=== PATIENT | male | born 2000 | race Caucasian/White ===

== ENCOUNTER 2020-09-07 16:31 | Emergency (ER) | payer OTHER ==
[~2020-09-07 16:31] MED LIST: ETODOLAC500 MG PO; MIRALAX17 GM PO; ONDANSETRON ODT4 MG PO; VENTOLIN HFA IN18 GM INH
== END 2020-09-07 18:04 | disposition left against medical advice (07) ==
LOC: FER 16:31
DX: R06.02 Shortness of breath (principal); R53.1 Weakness; R11.0 Nausea; Z53.8 Procedure and treatment not carried out for other reasons

== ENCOUNTER 2021-05-28 01:01 | Emergency (ER) | payer OTHER ==
[2021-05-28 02:01] LABS: BILIRUBIN NEGATIVE (NEGATIVE); BLOOD NEGATIVE Ery/uL (NEGATIVE); CLARITY CLEAR (CLEAR); COLOR YELLOW (YELLOW); GLUCOSE (U) NORMAL (NORMAL); LEUKOCYTES NEGATIVE Leu/uL (NEGATIVE); NITRITE NEGATIVE (NEGATIVE); PROTEIN NEGATIVE (NEGATIVE); SPECIFIC GRAVITY >=1.030 (1.001-1.030); UROBILINOGEN 0.2 mg/dL (0.2-1.0)
[2021-05-28 02:08] LABS: AMPHETAMINES NEGATIVE (NEGATIVE); BARBITURATES NEGATIVE (NEGATIVE); ECSTASY (MDMA) NEGATIVE (NEGATIVE); MARIJUANA (THC) NEGATIVE (NEGATIVE); METHADONE NEGATIVE (NEGATIVE); OPIATES NEGATIVE (NEGATIVE); OXYCODONE NEGATIVE (NEGATIVE)
[2021-05-28 02:09] LABS: BASOPHIL 0.5 % (0-2); EOSINOPHIL 1.3 % (0-5); HCT 48.3 % (42.0-52.0); HGB 16.1 g/dl (13.2-18.0); LYMPHOCYTE 24.3 % (15-48); MCH 31.1 pg (25.0-31.0); MCHC 33.3 g/dL (32.0-36.0); MCV 93.4 fL (78.0-100.0); MONOCYTE 8.3 % (0-12); MPV 10.6 fL (6.0-9.5); NEUTROPHIL 65.3 % (41-80); NRBC 0; PLT 213 K/uL (150-400); RBC 5.17 M/uL (4.70-6.00); RDW 12.1 % (11.5-14.0); WBC 10.8 K/uL (4.0-10.5)
[2021-05-28 02:28] LABS: ALBUMIN 4.3 g/dL (3.4-5.0); ALKALINE PHOSHATASE 71 U/L (46-116); ALT 20 U/L (16-63); AST 12 U/L (15-37); BILIRUBIN - TOTAL 0.3 mg/dL (0.2-1.0); BUN 10 mg/dL (7-18); CHLORIDE 102 mmol/L (98-107); CO2 (BICARBONATE) 29 mmol/L (21-32); CPK 141 U/L (39-308); CREATININE 0.91 mg/dL (0.67-1.17); GLOBULIN (CALCULATION) 3.2 g/dL; GLUCOSE 95 mg/dL (74-106); MAGNESIUM 2.1 mg/dL (1.8-2.4); TOTAL PROTEIN 7.5 g/dL (6.4-8.2)
[2021-05-28 02:30] LABS: LACTIC ACID 1.3 mmol/L (0.4-1.9)
[2021-05-28 02:38] LABS: CORONAVIRUS 2019 SARS-COV-2 NEGATIVE (NEGATIVE); INFLUENZA A NAA NEGATIVE (NEGATIVE)
== END 2021-05-28 03:19 | disposition home or self-care (01) ==
LOC: FER 01:01
PROVIDERS: Emergency Medicine Emergency Medical Services
DX: R41.82 Altered mental status, unspecified (principal); F17.210 Nicotine dependence, cigarettes, uncomplicated; Z20.822 Contact with and (suspected) exposure to COVID-19
CPT/HCPCS: 36415; 70450; 71045; 80053; 80305; 81003; 82550; 83605; 83735; 84484; 85025; 93005; G0480; U0002

== ENCOUNTER 2021-12-30 16:09 | Emergency (ER) | payer OTHER ==
[2021-12-30 19:48] LABS: BASOPHIL 0.4 % (0-2); EOSINOPHIL 0.5 % (0-5); HCT 47.6 % (42.0-52.0); HGB 16.1 g/dl (13.2-18.0); LYMPHOCYTE 20.9 % (15-48); MCH 30.9 pg (25.0-31.0); MCHC 33.8 g/dL (32.0-36.0); MCV 91.4 fL (78.0-100.0); MONOCYTE 10.4 % (0-12); MPV 9.9 fL (6.0-9.5); NEUTROPHIL 67.4 % (41-80); NRBC 0; PLT 230 K/uL (150-400); RBC 5.21 M/uL (4.70-6.00); RDW 12.3 % (11.5-14.0)
[2021-12-30 20:07] LABS: ALBUMIN 4.7 g/dL (3.4-5.0); BILIRUBIN - TOTAL 0.7 mg/dL (0.2-1.0); BUN/CREAT RATIO (CALC) 11.9 RATIO; CREATININE 1.09 mg/dL (0.67-1.17); GLOBULIN (CALCULATION) 3.3 g/dL; POTASSIUM 3.8 mmol/L (3.5-5.1)
[2021-12-30] MEDS ORDERED: PRILOSEC20 MG PO (20:26)
== END 2021-12-30 20:36 | disposition home or self-care (01) ==
LOC: FER 16:09
PROVIDERS: Emergency Medicine
DX: K92.0 Hematemesis (principal); F17.200 Nicotine dependence, unspecified, uncomplicated; Z28.310 Unvaccinated for COVID-19
CPT/HCPCS: 36415; 80053; 83690; 85025; 99284

== ENCOUNTER 2022-01-07 13:09 | Emergency (ER) | payer OTHER ==
[~2022-01-07 13:09] MED LIST changes: +PRILOSEC20 MG PO
[2022-01-07] MEDS ORDERED: BENADRYL25 MG PO (16:12)
== END 2022-01-07 16:27 | disposition home or self-care (01) ==
LOC: FER 13:09
DX: T63.481A Toxic effect of venom of other arthropod, accidental (unintentional), initial encounter (principal); R22.32 Localized swelling, mass and lump, left upper limb; F17.210 Nicotine dependence, cigarettes, uncomplicated; Z28.310 Unvaccinated for COVID-19; Y92.89 Other specified places as the place of occurrence of the external cause; Y99.0 Civilian activity done for income or pay
CPT/HCPCS: 99282